=== PATIENT | female | born 1950 | race Caucasian/White ===

== ENCOUNTER → 2017-02-09 | Outpatient (REF) | payer MEDICARE ==
[~2017-02-09] MED LIST: ABIL1TAB11 PO; CALC600T57 PO; CALCTAB75 PO; FLON1SPR; IRONCAP2 PO; MULT1TAB10 PO; SERO150T PO; SERO1TAB PO; VENL150C43 PO; VITA100067 PO
== END ==
LOC: M LAB REF 11:16
PROVIDERS: ATTEND Nurse Practitioner Family
DX: R19.7 Diarrhea, unspecified (principal)

== ENCOUNTER → 2017-02-09 | Outpatient (REF) | payer MEDICARE ==
[2017-02-09 18:53] LABS: AMYLASE 51 U/L (25-115)
== END ==
LOC: M LAB REF 11:16
PROVIDERS: ATTEND Nurse Practitioner Family
DX: R19.7 Diarrhea, unspecified (principal)

== ENCOUNTER 2017-04-05 09:56 | Day surgery (SDC) | payer MEDICARE ==
[~2017-04-05] VITALS: Ht 162.6 cm; Wt 77.6 kg
[~2017-04-05 09:56] MED LIST changes: +LIDOCAINE 2% INJ 100 MG/5 ML SDV (FOR ANES.) As Ordered ONE; +PROPOFOL 200 MG/20 ML VIAL As Ordered ONE
[2017-04-05] MEDS ORDERED: NS 1,000 ML IV ONE (10:15)
[2017-04-05] MEDS ORDERED: NS 500 ML IV ONE (10:15)
--- NOTE | 2017-04-05 11:28 | ROOR ---
Patient Name: Elaina Sanchez Procedure Date: 04/05/2017 11:03 AM Date of : 1950 Age: 66 Room: [facility] Gender: Female Note Status: Finalized Procedure: Total Colonoscopy to cecum + Biopsy Polypectomy Indications: Last colonoscopy: 2007, Change in bowel habits Providers: Musa Hodges MD Referring MD: CHERISE SHERMAN NP Requesting Provider: Medicines: Monitored Anesthesia Care Complications: No immediate complications. Procedure: Pre-Anesthesia Assessment: - The heart rate, respiratory rate, oxygen saturations, blood pressure, adequacy of pulmonary ventilation, and response to care were monitored throughout the procedure. The Colonoscope was introduced through the anus and advanced to the cecum, identified by appendiceal orifice and ileocecal valve. The colonoscopy was performed without difficulty. The patient tolerated the procedure well. Findings: The perianal and digital rectal examinations were normal. Non-bleeding internal hemorrhoids were found during retroflexion. The hemorrhoids were small and Grade I (internal hemorrhoids that do not prolapse). Scattered small-mouthed diverticula were found in the recto-sigmoid colon, sigmoid colon and descending colon. The exam was otherwise without abnormality on direct and retroflexion views. A small polyp was found in the rectum. The polyp was sessile. The polyp was removed with a jumbo cold forceps. Resection and retrieval were complete. The exam was otherwise without abnormality. Impression: - Non-bleeding internal hemorrhoids. - Diverticulosis in the recto-sigmoid colon, in the sigmoid colon and in the descending colon. - The examination was otherwise normal on direct and retroflexion views. - One small polyp in the rectum, removed with a jumbo cold forceps. Resected and retrieved. - The examination was otherwise normal. - The exam was otherwise normal to the cecum. Recommendation: - Patient has a contact number available for emergencies. The signs and symptoms of potential delayed complications were discussed with the patient. Return to normal activities tomorrow. Written discharge instructions were provided to the patient. - High fiber diet. - Discharge patient to home. - Continue present medications. - Repeat colonoscopy in 10 years for screening purposes. - Await pathology results. - Telephone GI clinic for pathology results in 1 week. - Check Portal Online for Path Results.([email or web address]) - Return to referring physician. - The findings and recommendations were discussed with the patient's family. Musa Hodges MD Musa Hodges MD 04/05/2017 11:28:04 AM This report has been signed electronically. Number of Addenda: 0 Note Initiated On: 04/05/2017 11:03 AM Estimated Blood Loss: Estimated blood loss: none.
[2017-04-05 11:55] VITALS: BP 130/71
== END 2017-04-05 12:04 | disposition home or self-care (01) ==
LOC: M OPP 09:56 → EDSTATUS 11:15 → M OPP 12:04
PROVIDERS: ATTEND Internal Medicine Gastroenterology
DX: R19.4 Change in bowel habit (principal); K63.5 Polyp of colon; K64.0 First degree hemorrhoids; K57.30 Diverticulosis of large intestine without perforation or abscess without bleeding; R01.1 Cardiac murmur, unspecified; F32.9 Major depressive disorder, single episode, unspecified; Z78.0 Asymptomatic menopausal state; Z85.828 Personal history of other malignant neoplasm of skin; Z88.0 Allergy status to penicillin; Z88.1 Allergy status to other antibiotic agents; Z88.8 Allergy status to other drugs, medicaments and biological substances; Z79.899 Other long term (current) drug therapy; Z87.891 Personal history of nicotine dependence

== ENCOUNTER → 2018-05-18 | Outpatient (CLI) | payer MEDICARE | LOC: M RAD 14:04 | DX: Z12.2 Encounter for screening for malignant neoplasm of respiratory organs (principal); F17.210 Nicotine dependence, cigarettes, uncomplicated | CPT/HCPCS: G0297 ==

== ENCOUNTER 2018-10-18 20:19 | Observation (INO) | payer MEDICARE ==
[~2018-10-18] VITALS: Ht 165.1 cm; Wt 73.6 kg
[~2018-10-18 20:19] MED LIST changes: -LIDOCAINE 2% INJ 100 MG/5 ML SDV (FOR ANES.) As Ordered ONE; -PROPOFOL 200 MG/20 ML VIAL As Ordered ONE; -SERO150T PO; +SERO150T2 PO
[2018-10-18] MEDS ORDERED: NS 1,000 ML IV SCH (20:51)
[2018-10-18] MEDS ORDERED: MORPHINE 4 MG/ML 1ML VIAL/SYRINGE (J2270) IV ONE (21:00)
[2018-10-18] MEDS ORDERED: ONDANSETRON 4MG/2ML VIAL (J2405) IV ONE ×2 (21:00→21:45)
[2018-10-18 21:04] LABS: BASO # 0.1 10^3/uL (0.0-0.2); BASO % 1.2 % (0.0-1.0); EOS # 0.1 10^3/uL (0.0-0.50); EOS % 2.4 % (0.0-3.0); HEMATOCRIT 38.3 % (36.0-47.0); HEMOGLOBIN 13.1 g/dl (12.0-15.5); LYMPH # 1.6 10^3/uL (1.5-4.5); LYMPH % 26.9 % (24.0-44.0); MEAN CORPUSCULAR HGB CONC 34.2 g/dl (32.0-36.5); MEAN CORPUSCULAR VOLUME 93.4 fl (80.0-96.0); MONO # 0.5 10^3/uL (0.0-0.8); MONO % 8.8 % (0.0-5.0); NEUTROPHILS # 3.5 10^3/uL (1.8-7.7); NEUTROPHILS % 60.5 % (36.0-66.0); PLATELET COUNT, AUTOMATED 326 10^3/uL (150-450); WHITE BLOOD COUNT 5.8 10^3/uL (4.0-10.0)
[2018-10-18 21:23] LABS: ALBUMIN 4.4 GM/DL (3.2-5.2); ALT/SGPT 24 U/L (12-78); BILIRUBIN,DIRECT 0.1 MG/DL (0.0-0.2); BILIRUBIN,TOTAL 0.4 MG/DL (0.2-1.0); BLOOD UREA NITROGEN 11 MG/DL (7-18); CALCIUM LEVEL 9.1 MG/DL (8.8-10.2); CARBON DIOXIDE LEVEL 27 MEQ/L (21-32); CHLORIDE LEVEL 99 MEQ/L (98-107); CREATININE FOR GFR 0.56 MG/DL (0.55-1.30); GLOMERULAR FILTRATION RATE > 60.0 (>39); GLUCOSE, FASTING 83 MG/DL (70-100); LIPASE 78 U/L (73-393); POTASSIUM SERUM 4.1 MEQ/L (3.5-5.1); SODIUM LEVEL 133 MEQ/L (136-145); TOTAL PROTEIN 7.1 GM/DL (6.4-8.2)
[2018-10-18] MEDS: GASTROGRAFIN SOLUTION 30ML PO SCH ×2 (21:29→22:00)
[2018-10-18] MEDS ORDERED: ISOVUE-370 76% 100ML VIAL (Q9967) As Ordered ONE (22:45)
--- NOTE | 2018-10-18 23:43 | REPVR ---
EXAM: CT Abdomen and Pelvis With Contrast EXAM DATE/TIME: 10/18/2018 10:58 PM CLINICAL HISTORY: 68 years old, female; Abdominal pain; Localized; Lower; Additional info: Low abd pain TECHNIQUE: Imaging protocol: Axial computed tomography images of the abdomen and pelvis with intravenous contrast. Coronal and sagittal reformatted images were created and reviewed. Radiation optimization: All CT scans at this facility use at least one of these dose optimization techniques: automated exposure control; mA and/or kV adjustment per patient size (includes targeted exams where dose is matched to clinical indication); or iterative reconstruction. Contrast material: ISOVUE 370; Contrast volume: 100 ml; Contrast route: IV; COMPARISON: No relevant prior studies available. FINDINGS: Lungs: Minimal dependent atelectasis. ABDOMEN: Liver: Normal. No mass. Gallbladder and bile ducts: Normal. No calcified stones. No ductal dilation. Pancreas: Normal. No ductal dilation. Spleen: Normal. No splenomegaly. Adrenals: Normal. No mass. Kidneys and ureters: Nonobstructing right renal calculi in the upper pole. Stomach and bowel: There is colonic diverticulosis without evidence of diverticulitis. There is a diverticulum projecting from the proximal duodenal sweep. Mild stool throughout much of the colon. Borderline to mild distention of small bowel with contrast with multiple air-fluid levels with tapering to the distal ileum which is nonspecific and may reflect volume loading, ileus or possibly enteritis some degree of obstruction is not excluded. Appendix: A normal appendix is seen. PELVIS: Bladder: Unremarkable as visualized. Reproductive: Unremarkable as visualized. ABDOMEN and PELVIS: Intraperitoneal space: Normal. No free air. No significant fluid collection. Bones/joints: Degenerative changes of the lumbar spine. Soft tissues: Unremarkable. Vasculature: Normal. No abdominal aortic aneurysm. Lymph nodes: Normal. No enlarged lymph nodes. IMPRESSION: 1. Nonobstructing right renal calculi. 2. Colonic diverticulosis without diverticulitis. 3. Borderline to mild distention of contrast-filled small bowel with air-fluid levels which may reflect volume loading and recent ingestion. Ileus, enteritis or low-grade obstruction are not excluded. 4. Otherwise negative CT abdomen/pelvis. Electronically signed by: Josh Pang On 10/18/2018 23:42:38 PM
[2018-10-19] MEDS ORDERED: ONDANSETRON 4MG/2ML VIAL (J2405) IV PRN (00:30)
[2018-10-19] MEDS ORDERED: ACETAMINOPHEN TAB 650MG DOSE (2X325MG) PO PRN (00:30)
[2018-10-19] MEDS ORDERED: MAALOX 30 ML SUSP *UDC PO PRN (00:30)
[2018-10-19] MEDS ORDERED: MOM 30ML SUSPENSION UDC PO PRN (00:30)
[2018-10-19] MEDS ORDERED: VITMTA PO (00:58)
[2018-10-19] MEDS ORDERED: CALCD50TA PO (00:58)
[2018-10-19] MEDS ORDERED: D3 H2000 PO (00:58)
[2018-10-19 03:30] VITALS: BP 154/92
[2018-10-19] MEDS: D5W/0.45% SODIUM CHLORIDE 1,000 ML IV SCH ×3 (03:33→23:29)
[2018-10-19] MEDS: QUEtiapine FUMARATE 100 MG TAB PO SCH ×2 (03:36→20:21)
[2018-10-19] MEDS: MORPHINE 4 MG/ML 1ML VIAL/SYRINGE (J2270) IV PRN ×2 (03:54→08:00)
[2018-10-19 06:00] VITALS: BP 132/62
[2018-10-19] MEDS: FLUTICASONE PROP 0.05% NASAL SPRAY 16 GM (FLONASE) SCH (07:59)
[2018-10-19] MEDS: VENLAFAXINE **XR** 75MG CAPSULE PO SCH (07:59)
--- NOTE | 2018-10-19 08:34 | HPE ---
DATE OF ADMISSION: 10/19/2018 CHIEF COMPLAINT: Abdominal pain. Patient is a 68-year-old female with past medical history of depression and environmental allergies, who presents at [facility] Emergency Room (ER) on 10/18/2018 due to abdominal pain since Monday with nausea and emesis. The patient reported that she never had this before and her last bowel movement was on Monday. Reported diffuse abdominal pain that is crampy, currently 5 out of 10. She reported prior to receiving treatment in the ER, her pain was 7 out of 10. She reported that abdominal pain has gradually worsened since it started on Monday. Her last bowel movement on Monday was formed, brown colored stool without hematochezia or melena. She reported she has not been passing any gas since her last bowel movement and has increased frequency of hiccups compared to usual. She also has decreased appetite and reported that she is not sure if she has been able to hold down any food or liquid due to the emesis. Denies any fever or chills, chest pain, palpitations, lightheadedness, or dizziness. She reported that her last colonoscopy was in 2016 with one small polyp removed and only requires colonoscopy followup in 10 years. PAST MEDICAL HISTORY: 1. Diverticulosis shown on colonoscopy. 2. Internal hemorrhoids, non-bleeding, shown on colonoscopy. 3. Rectal polyps, removed during colonoscopy. 4. Depression. 5. Environmental allergies. PAST SURGICAL HISTORY: 1. Five sutures in left wrist after self-inflicted cut. 2. Colonoscopy in March 2017. MEDICATIONS: - aripiprazole 5 mg by mouth daily - calcium 500 one tablet by mouth daily - vitamin D3, 2000 units by mouth daily - Flonase 50 mcg/ACT, two sprays nasal daily - multivitamins one tablet by mouth daily - Seroquel 200 mg by mouth daily - venlafaxine HCl 300 mg by mouth daily ALLERGIES: CIPROFLOXACIN, reaction hives. Adverse reaction with AMOXICILLIN, reaction reported to be vomiting and diarrhea. FAMILY HISTORY: Patient reports mother had a history of mild stroke. Father , complication from abdominal aneurysm surgery. One brother at age of 55 of myocardial infarction (MT). Another brother had bladder cancer. SOCIAL HISTORY: Patient lives alone. She was a past drinker but reported that she quit drinking years ago. Medical records from 2005 listed a six-pack of alcohol daily. Patient is a past smoker. She smoked a half pack of cigarettes per day in the past. Denies recreational drug use. REVIEW OF SYSTEMS: GENERAL: Patient denies any fever or chills. Positive for decreased appetite. HEENT: Denies lightheadedness, dizziness, or change of vision. CHEST: Denies any chest pain, shortness of breath, or palpitations. GASTROINTESTINAL (GI): Positive for nausea or vomiting. Denies diarrhea, melena, or hematochezia. Last bowel movement on Monday. Denies flatulence since Monday. Increased hiccup frequency. Denies history of liver disease. GENITOURINARY (): Denies urgency, frequency, or dysuria. LABS: CBC: WBC 5.8, hemoglobin 13.1, hematocrit 38.3, platelets 326. CMP: Sodium 133, potassium 4.1, chloride of 99, carbon dioxide 27, BUN 11, creatinine 0.56, GFR is greater than 60, fasting glucose 83, calcium 9.1, total bilirubin 0.4, direct bilirubin 0.1, AST 28, ALT 24, alkaline phosphatase 72, lipase 78. Urinalysis (UA): Unremarkable. Abdomen and pelvis with contrast showed nonobstructing right renal calculi, colonic diverticulosis without diverticulitis, borderline to mild distention of contrast-filled small bowel with air-fluid levels which may reflect volume loading and recent ingestion. Ileus, enteritis, or low-grade obstruction are not excluded. PHYSICAL EXAMINATION: Temperature 98.4, pulse 76, respiratory rate 18, blood pressure 134/64, pulse oximetry is 99% on room air. GENERAL: Patient is laying comfortably on the bed without any signs of acute distress at the time of the examination. HEENT: Head normocephalic, atraumatic. Conjunctivae was grossly normal. No scleral icterus. Mucosa appears to be mildly dry. HEART: Regular rate and rhythm. No murmur. Normal S1 and S2. LUNGS: Clear to auscultation bilaterally. No rales, wheezing, or rhonchi. ABDOMEN: Normoactive to mildly hyperactive bowel sounds auscultated in all four quadrants. No guarding. No to minimal distention of the abdomen noted. Increased tenderness upon palpation in all four quadrants. EXTREMITIES: Bilateral radial pulse palpated equally. Patient is able to move all extremities. Capillary refill about 3 seconds. NEUROLOGIC: Patient is alert and orientated times three. No numbness, tingling, or loss of sensation in bilateral upper and lower extremities upon palpation. ASSESSMENT AND PLAN: 1. Abdominal pain, likely due to low-grade bowel obstruction. CT abdomen and pelvis showed borderline to mild distention of contrast-filled small bowel and air-fluid levels. Increased burping frequency and no flatulence since Monday. It is noted that the ER physician has discussed with the surgery team; and at this time we will have the patient on nothing by mouth diet, intravenous (IV) morphine as needed, IV Zofran as needed, Mylanta, Tylenol, Colace, and IV fluid at this time. Discussed with patient if abdominal pain suddenly worsens, please let us know. If patient's condition worsens or does not improve in the next few days, will consider surgical consultation. 2. Diverticulosis without diverticulitis. CT of the abdomen and pelvis again noted diverticulosis, which was shown on prior colonoscopy. Patient is afebrile with no leukocytosis. At this time, we will continue to observe the patient. 3. Internal hemorrhoids were visualized in prior colonoscopy. Patient denies any hematochezia at this time. Will continue to observe the patient closely. 4. Depression. Continue home medication, Abilify, Seroquel, and venlafaxine. Patient's mood appears to be stable without any apparent acute distress. Continue to observe the patient.
[2018-10-19] MEDS ORDERED: MULTIVITAMINS/MINERALS THERAP 1 TAB PO SCH (09:00)
[2018-10-19] MEDS ORDERED: VITAMIN D 1,000 INTERNATIONAL UNITS TABLET PO SCH (09:00)
[2018-10-19] MEDS: ONDANSETRON 4MG/2ML VIAL (J2405) IV SCH ×2 (09:00→17:00)
[2018-10-19] MEDS ORDERED: DOCUSATE SODIUM 100 MG CAP PO SCH (09:00)
[2018-10-19 14:00] VITALS: BP 132/71
--- NOTE | 2018-10-19 16:08 | IPNPDOC ---
Text Note Date of Service The patient was seen on 10/19/18. NOTE SUBJECTIVE: Patient's abdominal pain is a little better this am, still has some nausea but no vomiting. No fever or chills, no diarrhea, no chest pain or sob or cough . Wants to try some oral liquids. Will advance diet as tolerated PHYSICAL EXAMINATION: VITALS: as below GENERAL: Patient is laying comfortably on the bed without any signs of acute distress at the time of the examination. HEENT: Head normocephalic, atraumatic. Conjunctivae was grossly normal. No scleral icterus. Mucosa appears to be mildly dry. HEART: Regular rate and rhythm. No murmur. Normal S1 and S2. LUNGS: Clear to auscultation bilaterally. No rales, wheezing, or rhonchi. ABDOMEN: Normoactive to mildly hyperactive bowel sounds auscultated in all four quadrants. No guarding. No to minimal distention of the abdomen noted. Increased tenderness upon palpation in all four quadrants. EXTREMITIES: Bilateral radial pulse palpated equally. Patient is able to move all extremities. Capillary refill about 3 seconds. NEUROLOGIC: Patient is alert and orientated times three. No numbness, tingling, or loss of sensation in bilateral upper and lower extremities upon palpation. LABS and RADIOLOGY: Reviewed. ASSESSMENT AND PLAN: This is a 68-year-old female with past medical history of depression and environmental allergies, who presents at [facility] Emergency Room (ER) on 10/18/2018 for abdominal pain , nausea and vomiting without diarrhea for 4 days. The patient reported that she never had this before and her last bowel movement was [address] abdomen in ED showed Borderline to mild distention of contrast- filled small bowel with air-fluid levels which may reflect volume loading and recent ingestion. Ileus, enteritis or low-grade obstruction are not excluded. She was admitted for possible viral enteritis. Possible viral enteritis with mils Ileus i do not think she has any bowel obstruction symtomatic management with bowel rest antiemetics, pain meds patient already starting to feel better, her appetite is coming back and requesting diet will advance her diet as tolerated. Diverticulosis without diverticulitis. CT of the abdomen and pelvis again noted diverticulosis, which was shown on prior colonoscopy. Patient is afebrile with no leukocytosis. At this time, we will continue to observe the patient. Internal hemorrhoids were visualized in prior colonoscopy. Patient denies any hematochezia at this time. Will continue to observe the patient closely. Depression. Continue home medication, Abilify, Seroquel, and venlafaxine. Patient's mood appears to be stable without any apparent acute distress. Continue to observe the patient. DVT prophylaxis has been ordered. A-FIB/CHADSVASC A-FIB History Current/History of A-Fib/PAF?: No VS,Fishbone, I+O VS, Fishbone, I+O Laboratory Tests 10/18/18 20:45 Red Blood Count 4.10, Mean Corpuscular Volume 93.4, Mean Corpuscular Hemoglobin 32.0, Mean Corpuscular Hemoglobin Concent 34.2, Red Cell Distribution Width 12.3, Neutrophils (%) (Auto) 60.5, Lymphocytes (%) (Auto) 26.9, Monocytes (%) (Auto) 8.8 H, Eosinophils (%) (Auto) 2.4, Basophils (%) (Auto) 1.2 H, Neutrophils # (Auto) 3.5, Lymphocytes # (Auto) 1.6, Monocytes # (Auto) 0.5, Eosinophils # (Auto) 0.1, Basophils # (Auto) 0.1 Vital Signs Date Time Temp Pulse Resp B/P (MAP) Pulse Ox O2 Delivery O2 Flow Rate FiO2 10/19/18 14:00 97.9 69 18 132/71 (91) 98 10/19/18 03:00 Room Air I&O- Last 24 Hours up to 6 AM 10/19/18 05:59 Intake Total 0 ml Output Total 550 ml Balance -550 ml LIDIA HAGER MD October 19, 2018 16:08
[2018-10-19 21:30] VITALS: BP 116/56
[2018-10-20] MEDS: ONDANSETRON 4MG/2ML VIAL (J2405) IV SCH ×2 (01:00→08:43)
[2018-10-20 05:35] VITALS: BP 117/57
[2018-10-20] MEDS: D5W/0.45% SODIUM CHLORIDE 1,000 ML IV SCH (06:37)
[2018-10-20 07:12] LABS: EOS # 0.3 10^3/uL (0.0-0.50); EOS % 6.5 % (0.0-3.0); HEMOGLOBIN 12.5 g/dl (12.0-15.5); LYMPH # 1.6 10^3/uL (1.5-4.5); LYMPH % 40.5 % (24.0-44.0); MEAN CORPUSCULAR HEMOGLOBIN 32.4 pg (27.0-33.0); MEAN CORPUSCULAR HGB CONC 33.8 g/dl (32.0-36.5); MEAN CORPUSCULAR VOLUME 95.9 fl (80.0-96.0); MONO # 0.5 10^3/uL (0.0-0.8); MONO % 13.3 % (0.0-5.0); NEUTROPHILS # 1.5 10^3/uL (1.8-7.7); NEUTROPHILS % 38.4 % (36.0-66.0); PLATELET COUNT, AUTOMATED 285 10^3/uL (150-450); RED BLOOD COUNT 3.86 10^6/uL (4.00-5.40)
[2018-10-20 07:42] LABS: ALBUMIN 3.2 GM/DL (3.2-5.2); ALT/SGPT 21 U/L (12-78); BILIRUBIN,TOTAL 0.4 MG/DL (0.2-1.0); BLOOD UREA NITROGEN 3 MG/DL (7-18); CALCIUM LEVEL 8.5 MG/DL (8.8-10.2); CARBON DIOXIDE LEVEL 32 MEQ/L (21-32); CHLORIDE LEVEL 110 MEQ/L (98-107); CREATININE FOR GFR 0.51 MG/DL (0.55-1.30); GLOMERULAR FILTRATION RATE > 60.0 (>39); GLUCOSE, FASTING 99 MG/DL (70-100); POTASSIUM SERUM 4.3 MEQ/L (3.5-5.1); SODIUM LEVEL 143 MEQ/L (136-145)
[2018-10-20] MEDS: VENLAFAXINE **XR** 75MG CAPSULE PO SCH (08:45)
[2018-10-20] MEDS: FLUTICASONE PROP 0.05% NASAL SPRAY 16 GM (FLONASE) SCH (08:45)
[2018-10-20] MEDS ORDERED: ONDANSETRON 4MG/2ML VIAL (J2405) IV PRN (09:00)
--- NOTE | 2018-10-20 09:05 | IPNPDOC ---
Text Note Date of Service The patient was seen on 10/20/18. NOTE SUBJECTIVE: Patient's abdominal pain , nausea and vomiting has resolved. She is passing gas. No bowel movement yet. Last bowel movement 2 days ago. tolerated full liquids. will advance diet. PHYSICAL EXAMINATION: VITALS: as below GENERAL: Patient is laying comfortably on the bed without any signs of acute distress at the time of the examination. HEENT: Head normocephalic, atraumatic. Conjunctivae was grossly normal. No scleral icterus. Mucosa appears to be mildly dry. HEART: Regular rate and rhythm. No murmur. Normal S1 and S2. LUNGS: Clear to auscultation bilaterally. No rales, wheezing, or rhonchi. ABDOMEN: Normoactive to mildly hyperactive bowel sounds auscultated in all four quadrants. No guarding. No to minimal distention of the abdomen noted. Increased tenderness upon palpation in all four quadrants. EXTREMITIES: Bilateral radial pulse palpated equally. Patient is able to move all extremities. Capillary refill about 3 seconds. NEUROLOGIC: Patient is alert and orientated times three. No numbness, tingling, or loss of sensation in bilateral upper and lower extremities upon palpation. LABS and RADIOLOGY: Reviewed. ASSESSMENT AND PLAN: This is a 68-year-old female with past medical history of depression and environmental allergies, who presents at [facility] Emergency Room (ER) on 10/18/2018 for abdominal pain , nausea and vomiting without diarrhea for 4 days. The patient reported that she never had this before and her last bowel movement was [address] abdomen in ED showed Borderline to mild distention of contrast-filled small bowel with air-fluid levels which may reflect volume loading and recent ingestion. Ileus, enteritis or low-grade obstruction are not excluded. She was admitted for possible viral enteritis. Possible viral enteritis with mild Ileus improved with symptomatic management. symptomatic management done with bowel rest antiemetics, pain meds will advance her diet Diverticulosis without diverticulitis. CT of the abdomen and pelvis again noted diverticulosis, which was shown on prior colonoscopy. Internal hemorrhoids were visualized in prior colonoscopy. Patient denies any hematochezia at this time. Will continue to observe the patient closely. Depression. Continue home medication, Abilify, Seroquel, and venlafaxine. Patient's mood appears to be stable without any apparent acute distress. Continue to observe the patient. DVT prophylaxis has been ordered. Disposition: Home today VS,[place]endellbone, I+O VS, Kendellbone, I+O Laboratory Tests 10/20/18 06:51 Red Blood Count 3.86 L, Mean Corpuscular Volume 95.9, Mean Corpuscular Hemogl obin 32.4, Mean Corpuscular Hemoglobin Concent 33.8, Red Cell Distribution Width 12.7, Neutrophils (%) (Auto) 38.4, Lymphocytes (%) (Auto) 40.5, Monocytes (%) (Auto) 13.3 H, Eosinophils (%) (Auto) 6.5 H, Basophils (%) (Auto) 1.0, Neutrophils # (Auto) 1.5 L, Lymphocytes # (Auto) 1.6, Monocytes # (Auto) 0.5, Eosinophils # (Auto) 0.3, Basophils # (Auto) 0.0 10/20/18 06:52 Calcium Level 8.5 L, Aspartate Amino Transf (AST/SGOT) 20, Alanine Aminotransferase (ALT/SGPT) 21, Alkaline Phosphatase 61, Total Bilirubin 0.4, Total Protein 6.0 L, Albumin 3.2 # Vital Signs Date Time Temp Pulse Resp B/P (MAP) Pulse Ox O2 Delivery O2 Flow Rate FiO2 10/20/18 05:35 97.4 65 18 117/57 (77) 98 10/19/18 03:00 Room Air I&O- Last 24 Hours up to 6 AM 10/20/18 06:00 Intake Total 3700 ml Output Total 2950 ml Balance 750 ml LIDIA HAGER MD October 20, 2018 09:05
--- NOTE | 2018-11-11 06:11 | DS.PDOC ---
Discharge Summary General Date of Admission October 19, 2018 at 00:27 Date of Discharge 10/20/18 Discharge Summary PROCEDURES PERFORMED DURING STAY: [None]. DISCHARGE DIAGNOSES: Viral Enteritis Colonic Ileus COMPLICATIONS/CHIEF COMPLAINT: ILEUS. HISTORY OF PRESENT ILLNESS: See history and physical HOSPITAL COURSE: This is a 68-year-old female with past medical history of depression and environmental allergies, who presents at [facility] Emergency Room (ER) on 10/18/2018 for abdominal pain , nausea and vomiting without diarrhea for 4 days. The patient reported that she never had this before and her last bowel movement was [address] abdomen in ED showed Borderline to mild distention of contrast- filled small bowel with air-fluid levels which may reflect volume loading and recent ingestion. Ileus, enteritis or low-grade obstruction are not excluded. She was admitted for possible viral enteritis. Possible viral enteritis with mild Ileus improved with symptomatic management. symptomatic management done with bowel rest antiemetics, pain meds will advance her diet Diverticulosis without diverticulitis. CT of the abdomen and pelvis again noted diverticulosis, which was shown on prior colonoscopy. Internal hemorrhoids were visualized in prior colonoscopy. Patient denies any hematochezia at this time. Depression. Continue home medication, Abilify, Seroquel, and venlafaxine. Patient's mood appears to be stable without any apparent acute distress. DISCHARGE MEDICATIONS: Please see below. ALLERGIES: Please see below. PHYSICAL EXAMINATION ON DISCHARGE: VITAL SIGNS: Please see below. GENERAL: Patient is laying comfortably on the bed without any signs of acute distress at the time of the examination. HEENT: Head normocephalic, atraumatic. Conjunctivae was grossly normal. No scleral icterus. Mucosa appears to be mildly dry. HEART: Regular rate and rhythm. No murmur. Normal S1 and S2. LUNGS: Clear to auscultation bilaterally. No rales, wheezing, or rhonchi. ABDOMEN: Normoactive to mildly hyperactive bowel sounds auscultated in all four quadrants. No guarding. No to minimal distention of the abdomen noted. Increased tenderness upon palpation in all four quadrants. EXTREMITIES: Bilateral radial pulse palpated equally. Patient is able to move all extremities. Capillary refill about 3 seconds. NEUROLOGIC: Patient is alert and orientated times three. No numbness, tingling, or loss of sensation in bilateral upper and lower extremities upon palpation. LABORATORY DATA: Please see below. ACTIVITY: [As tolerated]. DIET: Low and low cholesterol DISPOSITION: 01 Home, Self-Care. DISCHARGE INSTRUCTIONS: Follow up with PMD in 1 week DISCHARGE CONDITION: [Stable]. TIME SPENT ON DISCHARGE: 35 minutes. Vital Signs/I&Os Vital Signs Label Value Date Time Patient Temperature 97.4 degrees F 10/20/18 0535 Temperature Source Temporal 10/20/18 0535 Pulse 65 10/20/18 0535 Respiratory Rate 18 bpm 10/20/18 0535 Blood Pressure Assessment 117/57 (77) 10/20/18 0535 Bedside Pulse Oximetry 98 % 10/20/18 0535 Laboratory Data CBC/BMP Item Value Date Time White Blood Count 4.0 10^3/uL 10/20/18 0651 Red Blood Count 3.86 10^6/uL L 10/20/1851 Hemoglobin 12.5 g/dl 10/20/1851 Hematocrit 37.0 % 10/20/18650 Mean Corpuscular Volume 95.9 fl 10/20/18650 Mean Corpuscular Hemoglobin 32.4 pg 10/20/18650 Mean Corpuscular Hemoglobin Concent 33.8 g/dl 10/20/1851 Red Cell Distribution Width 12.7 % 10/20/18650 Platelet Count 285 10^3/uL 10/20/18 0651 Immature Granulocyte % (Auto) 0.3 % 10/20/1851 Neutrophils (%) (Auto) 38.4 % 10/20/1851 Lymphocytes (%) (Auto) 40.5 % 10/20/1851 Monocytes (%) (Auto) 13.3 % H 10/20/1851 Eosinophils (%) (Auto) 6.5 % H 10/20/1851 Basophils (%) (Auto) 1.0 % 10/20/1851 Neutrophils # (Auto) 1.5 10^3/uL L 10/20/18 0651 Lymphocytes # (Auto) 1.6 10^3/uL 10/20/18 0651 Monocytes # (Auto) 0.5 10^3/uL 10/20/18 0651 Eosinophils # (Auto) 0.3 10^3/uL 10/20/18 0651 Basophils # (Auto) 0.0 10^3/uL 10/20/18 0651 Nucleated Red Blood Cells % (auto) 0.0 % 10/20/18 0651 Sodium Level 143 MEQ/L # 10/20/18 0652 Potassium Level 4.3 MEQ/L 10/20/18 0652 Chloride Level 110 MEQ/L H 10/20/18 0652 Carbon Dioxide Level 32 MEQ/L 10/20/18 0652 Anion Gap 1 MEQ/L L 10/20/18 0652 Blood Urea Nitrogen 3 MG/DL L # 10/20/18 0652 Creatinine 0.51 MG/DL L 10/20/18 0652 Glomerular Filtration Rate > 60.0 10/20/18 0652 Fasting Glucose 99 MG/DL 10/20/18 0652 Calcium Level 8.5 MG/DL L 10/20/18 0652 Total Bilirubin 0.4 MG/DL 10/20/18 0652 Aspartate Amino Transf (AST/SGOT) 20 U/L 10/20/18 0652 Alanine Aminotransferase (ALT/SGPT) 21 U/L 10/20/18 0652 Alkaline Phosphatase 61 U/L 10/20/18 0652 Total Protein 6.0 GM/DL L 10/20/18 0652 Albumin 3.2 GM/DL # 10/20/18 0652 Albumin/Globulin Ratio 1.14 10/20/18 0652 Discharge Medications Scheduled Aripiprazole (Abilify) 5 Mg Tab, 5 MG PO DAILY, (Reported) Calcium/Vitamin D (Calcium 500-Vit D3 200 Tablet) 1 Each Tablet, 1 TAB PO DAILY, (Reported) Cholecalciferol (Vitamin D3) (Vitamin D3) 2,000 Unit Capsule, 2,000 UNIT PO DAILY, (Reported) Fluticasone Propionate (Flonase Allergy Relief) 50 Mcg/Act Spr, 2 SPRAYS NA DAILY, (Reported) Multivitamins (Thera M Plus Tablet) 1 Each Tablet, 1 TAB PO DAILY, (Reported) Quetiapine Fumarate (Seroquel) 100 Mg Tab, 200 MG PO QHS, (Reported) Venlafaxine HCl (Venlafaxine HCl ER) 150 Mg Cap, 300 MG PO DAILY, (Reported) Allergies Coded Allergies: Quinolones (Verified Allergy, Intermediate, CIPRO-HIVES, 10/18/18) amoxicillin (Verified Adverse Reaction, Mild, NAUSEA & VOMITING , 10/18/18) doxycycline (Verified Adverse Reaction, Mild, NAUSEA & VOMITING , 10/18/18) LIDIA HAGER MD November 11, 2018 06:11
--- NOTE | 2018-11-16 20:12 | IPNPDOC ---
Text Note Date of Service The patient was seen on 10/19/18. NOTE I performed a history and physical examination of the patient and discussed management with the resident. I reviewed the residents note and agree with the documented findings and plan of care. ANGELO DESAI MD November 16, 2018 20:12
== END 2018-10-20 12:35 | disposition home or self-care (01) ==
LOC: M ED 20:19 → M ED INP 20:22 → UNDOADMOB 10-19 00:27 → M ED INP 10-19 03:25 → M MS4PR 10-19 03:25 → UNDODISOB 10-20 12:35
PROVIDERS: ADMIT Internal Medicine; ATTEND Internal Medicine Nephrology
DX: K52.9 Noninfective gastroenteritis and colitis, unspecified (principal); K56.7 Ileus, unspecified; K57.30 Diverticulosis of large intestine without perforation or abscess without bleeding; K64.8 Other hemorrhoids; F32.9 Major depressive disorder, single episode, unspecified; J30.2 Other seasonal allergic rhinitis; Z87.891 Personal history of nicotine dependence; Z79.899 Other long term (current) drug therapy
CPT/HCPCS: 36415; 74177; 80048; 80053; 80076; 81001; 83690; 85025; 93041; 96361; 96374; 96375; 96376; 99285; G0378; J2270; J2405; Q9963; Q9967

== ENCOUNTER → 2019-04-01 | Outpatient (REF) ==
[~2019-04-01] MED LIST changes: +CALCD50TA PO; +D3 H2000 PO; +VITMTA PO
== END ==
LOC: M LAB LCGH 17:23
PROVIDERS: ATTEND Physician Assistant
DX: L82.0 Inflamed seborrheic keratosis (principal)

== ENCOUNTER → 2019-07-29 | Outpatient (CLI) | payer MEDICARE ==
--- NOTE | 2019-07-29 14:37 | REP ---
Clinical: Lung screening. History smoking. Comparison: 05/18/2018 Technique: Axial low-dose noncontrast images from the thoracic inlet to the upper abdomen using lung screening technique. Findings: The lung escobar are well-aerated. Few small scattered 2 mm calcified and noncalcified nodules noted and similar to prior examination. Linear scarring at the lingula unchanged. No consolidation, significant nodule or mass lesion is appreciated. No pleural effusion/reaction or pneumothorax. Tracheobronchial tree is patent. Mediastinum demonstrates mild atherosclerotic changes of the coronary arteries without cardiomegaly. Impression: Lung-RADS category II. No nodule or suspicious abnormality. Recommendations include annual low-dose CT surveillance. Electronically Signed by Salvador Najera MD 07/29/2019 02:28 P
== END ==
LOC: M RAD 13:41
PROVIDERS: ATTEND Nurse Practitioner Family
DX: Z12.2 Encounter for screening for malignant neoplasm of respiratory organs (principal); F17.211 Nicotine dependence, cigarettes, in remission

== ENCOUNTER → 2019-11-21 | Outpatient (REF) | payer MEDICARE ==
[2019-11-21 13:01] LABS: APPEARANCE, URINE CLEAR (CLEAR); BACTERIA, URINE AUTO NEGATIVE (NEGATIVE); BILIRUBIN, URINE AUTO NEGATIVE (NEGATIVE); BLOOD, URINE BLOOD NEGATIVE (NEGATIVE); COLOR, URINE YELLOW (YELLOW); GLUCOSE, URINE (UA) AUTO NEGATIVE (NEGATIVE); KETONE, URINE AUTO TRACE mg/dL (NEGATIVE); LEUKOCYTE ESTERASE, URINE AUTO NEGATIVE (NEGATIVE); NITRITE, URINE AUTO NEGATIVE (NEGATIVE); PROTEIN, URINE AUTO NEGATIVE (NEGATIVE); RBC, URINE AUTO 0 /HPF (0-3); SPECIFIC GRAVITY URINE AUTO 1.004 (1.002-1.035); SQUAMOUS EPITHELIAL CELL UR AU 0 /HPF (0-6); UROBILINOGEN, URINE AUTO 0.2 mg/dL (0.0-2.0); WBC, URINE AUTO 0 /HPF (0-3)
== END ==
LOC: M LAB REF 11:28
PROVIDERS: ATTEND Nurse Practitioner Family
DX: R35.1 Nocturia (principal)

== ENCOUNTER → 2019-11-28 | Outpatient (CLI) | payer MEDICARE | LOC: M LABSMTC 11:58 | PROVIDERS: ATTEND Family Medicine | DX: Z03.818 Encounter for observation for suspected exposure to other biological agents ruled out (principal); Z11.59 Encounter for screening for other viral diseases | CPT/HCPCS: C9803; U0003 ==

== ENCOUNTER → 2019-12-09 | Outpatient (REF) | payer MEDICARE | LOC: M LAB REF 16:50 | PROVIDERS: ATTEND Physician Assistant Medical | DX: R50.9 Fever, unspecified (principal); J02.9 Acute pharyngitis, unspecified; R51 Headache ==

== ENCOUNTER → 2019-12-19 | Outpatient (REF) | payer MEDICARE ==
[2019-12-19 18:00] LABS: APPEARANCE, URINE CLEAR (CLEAR); BACTERIA, URINE AUTO NEGATIVE (NEGATIVE); BILIRUBIN, URINE AUTO NEGATIVE (NEGATIVE); BLOOD, URINE BLOOD NEGATIVE (NEGATIVE); COLOR, URINE YELLOW (YELLOW); GLUCOSE, URINE (UA) AUTO NEGATIVE (NEGATIVE); KETONE, URINE AUTO NEGATIVE (NEGATIVE); LEUKOCYTE ESTERASE, URINE AUTO NEGATIVE (NEGATIVE); MUCUS, URINE SMALL (NEGATIVE); NITRITE, URINE AUTO NEGATIVE (NEGATIVE); PROTEIN, URINE AUTO NEGATIVE (NEGATIVE); RBC, URINE AUTO 0 /HPF (0-3); SPECIFIC GRAVITY URINE AUTO 1.006 (1.002-1.035); SQUAMOUS EPITHELIAL CELL UR AU 0 /HPF (0-6); UROBILINOGEN, URINE AUTO 0.2 mg/dL (0.0-2.0); WBC, URINE AUTO 2 /HPF (0-3)
== END ==
LOC: M SMT 17:10
PROVIDERS: ATTEND Nurse Practitioner Family
DX: R35.1 Nocturia (principal)
CPT/HCPCS: 51798; 81001; 87086; G0463

== ENCOUNTER → 2020-08-20 | Outpatient (CLI) | payer MEDICARE ==
--- NOTE | 2020-08-20 10:32 | REP ---
INDICATION: EARLY CANCER LUNG SCREENING COMPARISON: 05/18/2018, 07/29/2019 TECHNIQUE: Axial noncontrast images from the thoracic inlet to the upper abdomen using low-dose lung screening technique (LDCT). FINDINGS: Lung escobar again demonstrate chronic interstitial changes along with minimal scattered scarring. No acute consolidation, suspicious nodule or mass lesion. No effusion. No pneumothorax. Tracheobronchial tree is patent. IMPRESSION: Lung-RADS category 2. Stable chronic changes noted. Management recommendations include annual low-dose CT surveillance. <Electronically signed by Salvador Najera > 08/20/20 1020
== END ==
LOC: M RAD 09:16
PROVIDERS: ATTEND Registered Nurse
DX: Z12.2 Encounter for screening for malignant neoplasm of respiratory organs (principal); I50.32 Chronic diastolic (congestive) heart failure

== ENCOUNTER → 2020-12-15 | Outpatient (CLI) | payer MEDICARE ==
--- NOTE | 2020-12-15 08:44 | REPMRS ---
Patient History The patient states she had a clinical breast exam in November 2020. Patient has history of other cancer at age 63 and had first child at age 48. Family history of prostate cancer at age 50 or over in father. Patient states no breast complaints today. Patient has signed MRS History Sheet. Digital Woman Screen Mammo: December 15, 2020 - Exam #: [id number] Bilateral CC and MLO view(s) were taken. Technologist: Shanice García, Technologist Prior study comparison: November 26, 2019, bilateral digital mammo screening bilat, performed at [facility]. November 19, 2018, bilateral digital mammo screening bilat, performed at [facility]. FINDINGS: There are scattered fibroglandular densities. Screening. Digital screening (2D) mammography was performed bilaterally in the CC and MLO projections. Additionally, breast tomosynthesis (3D mammography) was performed bilaterally in the CC and MLO projections. Todays exam was compared to the prior exam/exams. By history, the patient has no complaints of a palpable breast abnormality or other significant breast complaints. The breasts are unchanged in size and shape. There are no katherine-soft tissue densities or spiculated masses. There is no internal architectural distortion.Once again, stable benign appearing calcifications are seen. There are no suspicious katherine-calcific clusters. Skin thickening or nipple retraction is not present. IMPRESSION: The Volpara volumetric breast density category is B, there are scattered areas of fibroglandular densities. BI-RADS Category 2- Benign Findings. There is no evidence of malignant alteration of the breasts. Followup examination recommended in one year. The lifetime Tyrer-Cuzick score is 6.2 % This mammogram was read with the assistance of [employer],an FDA approved computer aided detection system for mammography. Negative x-ray reports should not delay surgical consultation if a dominant or clinically suspicious mass is present. Not all breast cancers can be identified by mammography. Therefore, we recommend that you continue to perform regular breast self-examination and physical examination and then promptly contact your physician of any concerns or changes. Adenosis and dense breasts may obscure an underlying neoplasm. Assessment: BI-RADS/ACR category 2 mammogram. Benign Findings. Recommendation Routine screening mammogram of both breasts in 1 year. Electronically Signed By: Dewayne Whitehead DO 12/15/20 0843
== END ==
LOC: M WHC 07:12
PROVIDERS: ATTEND Nurse Practitioner Adult Health
DX: Z12.31 Encounter for screening mammogram for malignant neoplasm of breast (principal); Z85.89 Personal history of malignant neoplasm of other organs and systems; Z80.42 Family history of malignant neoplasm of prostate

== ENCOUNTER → 2021-02-02 | Outpatient (REF) | payer MEDICARE | LOC: M LAB REF 15:50 | PROVIDERS: ATTEND Internal Medicine | DX: R19.7 Diarrhea, unspecified (principal) ==

== ENCOUNTER → 2021-07-09 | Outpatient (CLI) | payer MEDICARE | LOC: M LABSMTC 12:13 | PROVIDERS: ATTEND Pediatrics | DX: Z20.822 Contact with and (suspected) exposure to COVID-19 (principal) | CPT/HCPCS: C9803; U0003 ==

== ENCOUNTER → 2021-10-05 | Outpatient (CLI) | payer MEDICARE | LOC: M RAD 08:36 | PROVIDERS: ATTEND Registered Nurse | DX: F17.210 Nicotine dependence, cigarettes, uncomplicated (principal) ==

== ENCOUNTER → 2022-01-10 | Outpatient (CLI) | payer MEDICARE | LOC: M WHC 07:30 | PROVIDERS: ATTEND Nurse Practitioner Adult Health | DX: Z12.31 Encounter for screening mammogram for malignant neoplasm of breast (principal); M81.0 Age-related osteoporosis without current pathological fracture ==

== ENCOUNTER 2022-06-16 12:05 | Emergency (ER) | payer MEDICARE ==
[~2022-06-16] VITALS: Ht 160 cm; Wt 68.5 kg
[2022-06-16 13:17] LABS: BASO % 0.8 % (0.0-1.0); EOS # 0.3 10^3/uL (0.0-0.5); EOS % 5.1 % (0.0-3.0); HEMATOCRIT 39.9 % (36.0-47.0); HEMOGLOBIN 13.1 g/dl (12.0-15.5); LYMPH # 1.4 10^3/uL (1.5-5.0); LYMPH % 27.4 % (24.0-44.0); MEAN CORPUSCULAR HEMOGLOBIN 31.6 pg (27.0-33.0); MEAN CORPUSCULAR HGB CONC 32.8 g/dl (32.0-36.5); MEAN CORPUSCULAR VOLUME 96.4 fl (80.0-96.0); MONO # 0.5 10^3/uL (0.0-0.8); MONO % 8.8 % (2.0-8.0); NEUTROPHILS % 57.7 % (36.0-66.0); PLATELET COUNT, AUTOMATED 287 10^3/uL (150-450); RED BLOOD COUNT 4.14 10^6/uL (4.00-5.40); WHITE BLOOD COUNT 5.1 10^3/uL (4.0-10.0)
[2022-06-16 13:52] LABS: BLOOD UREA NITROGEN 13 MG/DL (9-23); CALCIUM LEVEL 9.5 MG/DL (8.3-10.6); CARBON DIOXIDE LEVEL 29 MMOL/L (20-31); CHLORIDE LEVEL 105 MMOL/L (98-107); CREATININE FOR GFR 0.48 MG/DL (0.55-1.30); GLOMERULAR FILTRATION RATE > 60.0 (>39); GLUCOSE, FASTING 80 MG/DL (74-106); POTASSIUM SERUM 4.2 MMOL/L (3.5-5.1); SODIUM LEVEL 141 MMOL/L (136-145)
[2022-06-16 14:59] LABS: LIPASE 26 U/L (12-53)
[2022-06-16 15:00] LABS: ALBUMIN 3.8 G/DL (3.2-5.2); ALKALINE PHOSPHATASE 59 U/L (46-116); ALT/SGPT 25 U/L (7.0-40); AST/SGOT 36 U/L (<34); BILIRUBIN,DIRECT < 0.1 MG/DL (<0.4); BILIRUBIN,TOTAL 0.4 MG/DL (0.3-1.2); TOTAL PROTEIN 6.5 G/DL (5.7-8.2)
[2022-06-16 15:02] LABS: THYROID STIMULATING HORMONE 1.073 uIU/ML (0.55-4.78)
[2022-06-16 15:03] LABS: FREE T4 0.97 NG/DL (0.89-1.76)
[2022-06-16] MEDS ORDERED: HOLTER MONITOR XX (16:09)
[2022-06-16 16:42] VITALS: BP 134/70
== END 2022-06-16 16:45 | disposition home or self-care (01) ==
LOC: M ED 12:05
DX: R00.2 Palpitations (principal); K21.9 Gastro-esophageal reflux disease without esophagitis; K57.30 Diverticulosis of large intestine without perforation or abscess without bleeding; F33.9 Major depressive disorder, recurrent, unspecified; F10.10 Alcohol abuse, uncomplicated; Z88.1 Allergy status to other antibiotic agents; Z79.899 Other long term (current) drug therapy

== ENCOUNTER → 2022-06-28 | Outpatient (CLI) | payer MEDICARE ==
[~2022-06-28] MED LIST changes: +HOLTER MONITOR XX
== END ==
LOC: M CARPUL 11:43
PROVIDERS: ATTEND Nurse Practitioner Adult Health
DX: R00.2 Palpitations (principal)

== ENCOUNTER → 2022-07-28 | Outpatient (CLI) | payer MEDICARE | LOC: M CARPUL 10:02 | PROVIDERS: ATTEND Nurse Practitioner Adult Health | DX: I49.1 Atrial premature depolarization (principal); R00.2 Palpitations ==

== ENCOUNTER → 2023-01-13 | Outpatient (CLI) | payer MEDICARE | LOC: M WHC 06:52 | PROVIDERS: ATTEND Nurse Practitioner Adult Health | DX: Z12.31 Encounter for screening mammogram for malignant neoplasm of breast (principal) ==

== ENCOUNTER → 2023-02-06 | Outpatient (CLI) | payer MEDICARE | LOC: M RAD 07:17 | PROVIDERS: ATTEND Nurse Practitioner Adult Health | DX: F17.210 Nicotine dependence, cigarettes, uncomplicated (principal) ==

== ENCOUNTER → 2023-04-28 | Outpatient (REF) | payer MEDICARE | LOC: M LAB REF 16:29 | PROVIDERS: ATTEND Physician Assistant Medical | DX: R19.7 Diarrhea, unspecified (principal); R10.13 Epigastric pain ==

== ENCOUNTER → 2023-04-29 | Outpatient (REF) | payer MEDICARE | LOC: M LAB REF 10:30 | PROVIDERS: ATTEND Physician Assistant Medical | DX: R10.13 Epigastric pain (principal); R19.7 Diarrhea, unspecified ==

== ENCOUNTER → 2023-07-14 | Outpatient (REF) | payer MEDICARE | LOC: M LAB REF 15:42 | PROVIDERS: ATTEND Internal Medicine Gastroenterology | DX: R19.4 Change in bowel habit (principal) ==

== ENCOUNTER 2023-12-04 09:35 | Day surgery (SDC) | payer MEDICARE ==
[~2023-12-04] VITALS: Ht 165.1 cm; Wt 65.0 kg
[~2023-12-04 09:35] MED LIST changes: +AZEL15GE2 TOP; +D3 S20002 PO; +IBAN150T6 PO; +THERTAB52 PO; +VITA500C24 PO
[2023-12-04] MEDS: NS 1,000 ML IV ONE (09:55)
[2023-12-04] MEDS ORDERED: propofoL 200 MG/20 ML VIAL As Ordered ONE (11:05)
[2023-12-04 11:34] VITALS: TEMP 98.3
[2023-12-04 11:49] VITALS: BP 134/62; O2SAT 98
== END 2023-12-04 11:54 | disposition home or self-care (01) ==
LOC: M OPP 09:35
PROVIDERS: ATTEND Internal Medicine Gastroenterology
DX: K63.5 Polyp of colon (principal); K64.0 First degree hemorrhoids; K57.30 Diverticulosis of large intestine without perforation or abscess without bleeding; R19.4 Change in bowel habit; G47.30 Sleep apnea, unspecified; Z87.891 Personal history of nicotine dependence; Z79.02 Long term (current) use of antithrombotics/antiplatelets; Z79.83 Long term (current) use of bisphosphonates; Z79.899 Other long term (current) drug therapy; Z88.1 Allergy status to other antibiotic agents; Z88.8 Allergy status to other drugs, medicaments and biological substances

== ENCOUNTER → 2024-02-23 | Outpatient (CLI) | payer MEDICARE | LOC: M WHC 07:25 | PROVIDERS: ATTEND Physician Assistant Medical | DX: Z12.31 Encounter for screening mammogram for malignant neoplasm of breast (principal); Z13.820 Encounter for screening for osteoporosis; R92.323 Mammographic fibroglandular density, bilateral breasts; R92.8 Other abnormal and inconclusive findings on diagnostic imaging of breast; M81.0 Age-related osteoporosis without current pathological fracture; M85.851 Other specified disorders of bone density and structure, right thigh ==

== ENCOUNTER → 2024-03-06 | Outpatient (CLI) | payer MEDICARE | LOC: M WHC 09:17 | PROVIDERS: ATTEND Physician Assistant Medical | DX: R92.2 Inconclusive mammogram (principal) | CPT/HCPCS: 76642; 77065; G0279 ==

== ENCOUNTER → 2024-05-08 | Outpatient (CLI) | payer MEDICARE ==
[~2024-05-08] MED LIST changes: +IBAN150T10 PO; -IBAN150T6 PO
== END ==
LOC: M RAD 13:24
PROVIDERS: ATTEND Physician Assistant Medical
DX: Z87.891 Personal history of nicotine dependence (principal)

== ENCOUNTER → 2024-06-20 | Outpatient (CLI) | payer MEDICARE | LOC: M WUC 15:17 | PROVIDERS: ATTEND Nurse Practitioner Family | DX: M11.162 Familial chondrocalcinosis, left knee (principal) ==

== ENCOUNTER → 2024-06-24 | Outpatient (REF) | payer MEDICARE, MEDICAID | LOC: M LAB REF 10:26 | PROVIDERS: ATTEND Nurse Practitioner Family | DX: R19.7 Diarrhea, unspecified (principal); A03.8 Other shigellosis ==

== ENCOUNTER → 2024-06-24 | Outpatient (CLI) | payer MEDICARE, MEDICAID | LOC: M WUC 10:09 | PROVIDERS: ATTEND Nurse Practitioner Family | DX: K59.1 Functional diarrhea (principal) ==

== ENCOUNTER → 2024-09-23 | Outpatient (CLI) | payer MEDICARE, MEDICAID | LOC: M SLEEP 20:00 | PROVIDERS: ATTEND Nurse Practitioner Adult Health | DX: G47.30 Sleep apnea, unspecified (principal) ==

== ENCOUNTER → 2025-01-07 | Outpatient (CLI) | payer MEDICARE, MEDICAID ==
[2025-01-07 10:43] LABS: BASO # 0.0 10^3/uL (0.0-0.2); BASO % 1.0 % (0.0-1.0); EOS # 0.3 10^3/uL (0.0-0.5); EOS % 6.4 % (0.0-3.0); LYMPH # 1.3 10^3/uL (1.5-5.0); LYMPH % 32.8 % (24.0-44.0); MONO # 0.6 10^3/uL (0.0-0.8); MONO % 14.2 % (2.0-8.0); NEUTROPHILS # 1.9 10^3/uL (1.5-8.5); NEUTROPHILS % 45.4 % (36.0-66.0); PLATELET COUNT, AUTOMATED 330 10^3/uL (150-450)
[2025-01-07 11:11] LABS: ALT/SGPT 20 U/L (7.0-40); AST/SGOT 25 U/L (<34); CALCIUM LEVEL 9.6 MG/DL (8.3-10.6); CARBON DIOXIDE LEVEL 31 MMOL/L (20-31); CHLORIDE LEVEL 98 MMOL/L (98-107); CHOLESTEROL LEVEL 198 MG/DL (<200); CHOLESTEROL RISK RATIO 2.26 (<5); CREATININE FOR GFR 0.56 MG/DL (0.55-1.30); GLOMERULAR FILTRATION RATE > 90.0 (>39); LDL CHOLESTEROL 101.9 MG/DL (<100); MAGNESIUM LEVEL 1.9 MG/DL (1.8-2.4); NON-HDL-C 110.7 MG/DL; POTASSIUM SERUM 4.1 MMOL/L (3.5-5.1); SODIUM LEVEL 137 MMOL/L (136-145); TRIGLYCERIDES LEVEL 44 MG/DL (<150)
[2025-01-07 11:12] LABS: FREE T4 0.98 NG/DL (0.89-1.76)
[2025-01-07 11:13] LABS: TOTAL 25(OH) VITAMIN D 47.2 NG/ML (20.0-100.0)
[2025-01-07 11:29] LABS: ESTIMATED AVERAGE GLUCOSE 103.0 MG/DL (60-110)
== END ==
LOC: M PLALAB 07:12
PROVIDERS: ATTEND Registered Nurse
DX: Z00.00 Encounter for general adult medical examination without abnormal findings (principal); M81.0 Age-related osteoporosis without current pathological fracture; Z79.899 Other long term (current) drug therapy

== ENCOUNTER → 2025-03-04 | Outpatient (CLI) | payer MEDICARE, MEDICAID | LOC: M WHC 07:26 | PROVIDERS: ATTEND Physician Assistant | DX: Z12.31 Encounter for screening mammogram for malignant neoplasm of breast (principal); R92.323 Mammographic fibroglandular density, bilateral breasts ==

== ENCOUNTER → 2025-06-02 | Outpatient (CLI) | payer MEDICARE, MEDICAID | LOC: M RAD 15:37 | PROVIDERS: ATTEND Registered Nurse | DX: Z12.2 Encounter for screening for malignant neoplasm of respiratory organs (principal); Z87.891 Personal history of nicotine dependence ==